=== PATIENT | female | born 1985 | race Two or more races ===

== ENCOUNTER 2017-12-10 01:47 | Emergency (ER) | payer MEDICAID ==
[~2017-12-10] VITALS: Ht 160 cm; Wt 83.5 kg
[2017-12-10 01:53] VITALS: BP 146/101
[2017-12-10] MEDS ORDERED: ALBUTEROL FS 2.5 MG/0.5 ML VIAL.NEB ONE (02:06)
--- NOTE | 2017-12-10 02:09 | NUR ---
PATIENT CAME TO ER WITH COMPLAINT OF SOB FOR LAST 2HR. PATIENT IS ALERT, ORIENTEDX4. PATIENT TALKATIVE AND DEMANDING FOR ALBUTEROL. MILD EXPIRATORY WHEEZING AUSCULTATED THROUGHOUT THE LUNGS. INFORMED RT WAS CALLED ALREADY. PLACED ON PROP ATTENDANT AND O2 AT 2L/MIN BNC. VITAL SIGNS ARE WNL. ALL SAFETY MEASURES ARE IMPLEMENTED. PT INSULTING STAFF MEMBERS STATING "FUCKIN IRANIANS ARE COMMING HERE TO BE DOCTORS AND NURSES AND YOU DON'T KNOW HOW TO DO YOUR JOB"AND THEN SHE ASKED ME IF I AM [place] OR NOT. SHE SAID THAT "I AM RECORDING THIS CONVERSATION ON MY PHONE". AFTER MD ABDI PATIENT WAS GETTING BREATHING TREATMENT AND WHILE IN THE MIDDLE OF IT PATIENT WALKED OUT OF THE ROOM, SIGNED AMA FORM AND STATED "I GOT INADEQUATE CARE AND I AM GONNA GO ELSEWHERE".
[2017-12-10] MEDS: ALBUTEROL FS 2.5 MG/0.5 ML VIAL.NEB NEB ONE (02:12)
== END 2017-12-10 02:48 | disposition left against medical advice (07) ==
LOC: ER 01:49
DX: J45.909 Unspecified asthma, uncomplicated (principal)
CPT/HCPCS: 94640; 99283; A4606; Z7610